=== PATIENT | male | born 1995 | race Caucasian/White ===

== ENCOUNTER 2022-01-24 19:57 | Emergency (ER) | payer OTHER ==
[~2022-01-24 19:57] MED LIST: CYCLOBENZAPRINE10 MG PO; IBUPROFEN600 MG PO; IBUPROFEN800 MG PO
[2022-01-24 21:20] LABS: HEMOGLOBIN 13.3 gm/dl (14.0-17.5); RED BLOOD COUNT 4.84 M/UL (4.20-5.50)
[2022-01-24 21:41] LABS: BUN/CREATININE RATIO 11 (0-10)
[2022-01-24] MEDS ORDERED: METFORMIN HCL500 MG PO (22:46)
[2022-01-26 07:12] LABS: HEMOGLOBIN A1C 14.1 % (4.8-5.6)
== END 2022-01-24 23:12 | disposition home or self-care (01) ==
LOC: ER1 19:57
PROVIDERS: Nurse Practitioner
DX: E87.1 Hypo-osmolality and hyponatremia (principal); R73.9 Hyperglycemia, unspecified
CPT/HCPCS: 80053; 81001; 82009; 82803; 82962; 83036; 83690; 85025; 87086; 93005; 96361; 96374; 99284; Q9967